=== PATIENT | female | born 1960 | race Two or more races ===

== ENCOUNTER 2019-05-17 15:05 | Emergency (ER) | payer MEDICAID ==
[~2019-05-17] VITALS: Ht 154.9 cm; Wt 52.6 kg
--- NOTE | 2019-05-17 15:20 | NUR ---
ED Nurse Note: Patient came to ED from home c/o generalized body aches/ cough x 4 days. No stomach upset or fever. Patient AxO x 4, no s/s of acute distress.
--- NOTE | 2019-05-17 15:24 | NUR ---
ED Nurse Note: Bibiana WOOD speaking with patient.
[2019-05-17 15:25] VITALS: BP 116/79
--- NOTE | 2019-05-17 15:48 | Diagnostic Imaging Report ---
Indication: Dyspnea Comparison: None A single view chest radiograph was obtained. Findings: Cardiomediastinal appearance is within normal limits for age. The lungs are clear. Pulmonary vascularity is appropriate. The diaphragmatic contour is smooth and costophrenic angles are sharp. No pleural effusions are identified. The bones are unremarkable. Impression: No acute findings
--- NOTE | 2019-05-17 16:17 | Emergency Room Report ---
History of Present Illness General Chief Complaint: Upper Respiratory Illness Source: Patient Present Illness HPI 59-year-old female with no significant past medical history here complaining of 3 days of cough and congestion, sore throat, headache. Denies chest pain chest pain radiation. denies abdominal pain, nausea vomiting, generalized body ache. Denies other associated symptoms. Has not traveled recently. Has not taken medication for symptom relief. Appears to be stable with stable vital sign, diffuse wheezing noted. Patient History Past Medical History: see triage record Past Surgical History: unable to obtain Pertinent Family History: none Now: No Immunizations: UTD Reviewed Nursing Documentation: PMH: Agreed; PSxH: Agreed Nursing Documentation-PMH Past Medical History: No History, Except For Hx Asthma: Yes Review of Systems All Other Systems: negative except mentioned in HPI Physical Exam Vital Signs Date Time Temp Pulse Resp B/P (MAP) Pulse Ox O2 Delivery O2 Flow Rate FiO2 05/17/19 15:13 99.3 94 15 116/79 (91) 95 Room Air Sp02 EP Interpretation: reviewed, normal General Appearance: no apparent distress, alert Head: normocephalic, atraumatic Eyes: bilateral eye normal inspection, bilateral eye PERRL ENT: hearing grossly normal, normal pharynx, no angioedema, normal voice Neck: normal inspection, supple, thyroid normal, no meningismus Respiratory: chest non-tender, no rhonchi, no respiratory distress, no retraction, no accessory muscle use, wheezing Cardiovascular #1: regular rate, rhythm, no edema, no murmur Gastrointestinal: normal bowel sounds, non tender, soft, non-distended, no guarding, no rebound Rectal: deferred Genitourinary: no CVA tenderness Musculoskeletal: back normal, no calf tenderness Neurologic: alert, motor strength/tone normal, oriented x3, sensory intact, responsive, speech normal Psychiatric: judgement/insight normal, memory normal, mood/affect normal, no suicidal/homicidal ideation Skin: no rash, palpation normal, normal color Lymphatic: no adenopathy Medical Decision Making PA Attestation All my diagnosis and treatment plans were reviewed ad discussed with my supervising physician Dr. Rodriguez Diagnostic Impression: Primary Impression: Pneumonitis ER Course 59-year-old female with no significant past medical history here complaining of 3 days of cough and congestion, sore throat, headache. Denies chest pain chest pain radiation. denies abdominal pain, nausea vomiting, generalized body ache. Denies other associated symptoms. Has not traveled recently. Has not taken medication for symptom relief. Appears to be stable with stable vital sign, diffuse wheezing noted. Ddx considered but are not limited to: bronchitis, PNA, URI viral, bacterial bronchitis Vital signs: are WNL, pt. is afebrile H&PE are most consistent with: Pneumonitis ORDERS: Chest x-ray, Augmentin, albuterol, guaifenesin, Tylenol ED INTERVENTIONS: None DISCHARGE: At this time pt. is stable for d/c to home. Will provide printed patient care instructions, and any necessary prescriptions. Care plan and follow up instructions have been discussed with the patient prior to discharge. Patient take medication as directed, follow-up with primary care provider, for referral to evidence technician and demolition crane operator if needed. If worsening symptoms return to emergency room Chest X-Ray Diagnostic Results Chest X-Ray Diagnostic Results : Chest X-Ray Ordered: Yes # of Views/Limited/Complete: 1 View Indication: Shortness of Breath EP Interpretation: Yes PA Xray: Interpretation reviewed, by supervising MD, and agrees with findings. Interpretation: no consolidation, no effusion, no pneumothorax Impression: No acute disease Electronically Signed by: Bibiana Martínez PA-C Last Vital Signs Date Time Temp Pulse Resp B/P (MAP) Pulse Ox O2 Delivery O2 Flow Rate FiO2 05/17/19 15:25 94 15 Room Air 05/17/19 15:25 99.3 116/79 95 Status: improved Disposition: HOME, SELF-CARE Condition: Stable Scripts Acetaminophen* (TYLENOL EXTRA STRENGTH*) 500 Mg Tablet 500 MG ORAL Q8H PRN for Prn Headache/Temp > 101, #30 TAB 0 Refills Prov: Bibiana Pedersen 05/17/19 Albuterol Sulfate (VENTOLIN HFA) 18 Gm Hfa.aer.ad 2 PUFFS INH EVERY 6 HOURS, #18 GM 0 Refills Prov: Bibiana Pedersen 05/17/19 Guaifenesin* (GUAIFENESIN*) 100 Mg/5 Ml Liquid 5 ML ORAL Q8H, #120 ML 0 Refills Prov: Bibiana Pedersen 05/17/19 Amoxicillin* (AMOXIL*) 500 Mg Capsule 500 MG ORAL EVERY 12 HOURS for 10 Days, #20 CAP Prov: Bibiana Pedersen 05/17/19 Patient Instructions: Pneumonitis Additional Instructions: Take medication as directed, follow-up with your primary care provider, increase oral hydration, if worsening symptoms return to the emergency room Bibiana Pedersen May 17, 2019 16:17
[2019-05-17] MEDS ORDERED: GUAIFENESI100 MG/5 M ORAL (16:18)
[2019-05-17] MEDS ORDERED: TYLENOL EXTRA500 MG ORAL (16:18)
[2019-05-17] MEDS ORDERED: AMOXICILLIN500 MG ORAL (16:18)
[2019-05-17] MEDS ORDERED: VENTOLIN HFA18 GM INH (16:18)
[2019-05-17 16:20] VITALS: BP 110/80
--- NOTE | 2019-05-17 16:20 | NUR ---
ER DISCHARGE NOTE: Patient is cleared to be discharged per ERMD, pt is aox4, on room air, with stable vital signs. pt was given dc and prescription instructions, pt was able to verbalize understanding, pt id band removed. pt is able to ambulate with steady gait. pt took all belongings.
== END 2019-05-17 16:20 | disposition home or self-care (01) ==
LOC: EMR 15:45
DX: J18.9 Pneumonia, unspecified organism (principal); J45.909 Unspecified asthma, uncomplicated
CPT/HCPCS: 71045; Z7502; 99283